=== PATIENT | female | born 1990 | race Caucasian/White ===

== ENCOUNTER 2018-09-19 11:54 | Emergency (ER) | payer OTHER ==
[2018-09-19 12:56] VITALS: BP 111/66
--- NOTE | 2018-09-19 13:37 | UC ---
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 she is currently having an outbreak in the [place] area. - History of Current Complaint Chief Complaint: UCSkin Time Seen by Provider: 09/19/18 13:01 Stated Complaint: PERSONAL Hx Obtained From: Patient Hx Last Menstrual Period: 09/10/18 ?: No Onset/Duration: Sudden Onset Skin Exposure Onset/Duration: Days Ago Timing: Constant Onset Severity: Mild Current Severity: None Pain Intensity: 0 Location: Other - [place] area Character: Redness, Painful Aggravating Factor(s): Touch Alleviating Factor(s): Nothing - Allergy/Home Medications Allergies/Adverse Reactions: Allergies Allergy/AdvReac Type Severity Reaction Status Date / Time No Known Allergies Allergy Verified 09/19/18 12:51 PMH/Surg Hx/FS Hx/Imm Hx Previously Healthy: Yes - Surgical History Surgical History: Yes Surgery Procedure, Year, and Place: TONSILLECTOMY 2002 - Family History Known Family History: Positive: Hypertension - Social History Alcohol Use: Occasionally Substance Use Type: None Smoking Status (MU): Never Smoked Tobacco Have You Smoked in the Last Year: No - Immunization History Most Recent Influenza Vaccination: 2011 Most Recent Tetanus Shot: 2000 Most Recent Pneumonia Vaccination: never Review of Systems All Other Systems Reviewed And Are Negative: Yes Constitutional: Positive: Negative Skin: Positive: Rash Eyes: Positive: Negative ENT: Positive: Negative Respiratory: Positive: Negative Cardiovascular: Positive: Negative Gastrointestinal: Positive: Negative Genitourinary: Positive: Negative Motor: Positive: Negative Neurovascular: Positive: Negative Musculoskeletal: Positive: Negative Neurological: Positive: Negative Psychological: Positive: Negative Is Patient Immunocompromised?: No Physical Exam Triage Information Reviewed: Yes Appearance: Well-Appearing, Well-Nourished, Pain Distress Vital Signs: Initial Vital Signs Temp 98.1 F 09/19/18 12:52 Pulse 72 09/19/18 12:52 Resp 15 09/19/18 12:52 BP 111/66 09/19/18 12:52 Pulse Ox 100 09/19/18 12:52 Vital Signs Reviewed: Yes Eye Exam: Normal ENT Exam: Normal Dental Exam: Normal Neck exam: Normal Respiratory Exam: Normal Cardiovascular Exam: Normal Abdominal Exam: Normal Musculoskeletal Exam: Normal Neurological Exam: Normal Psychological Exam: Normal Skin: Positive: Rashes - vesicular lesions in the [place] area Course/Dx - Course Course Of Treatment: hx obtained, exam performed ,meds reviewed, treated for herpes outbreak - Differential Diagnoses - Skin Complaint Differential Diagnoses: Cellulitis, Contact Dermatitis, Urticaria, Varicella Zoster - Diagnoses Provider Diagnosis: HSV (herpes simplex virus) infection Discharge - Sign-Out/Discharge Documenting (check all that apply): Patient Departure All imaging exams completed and their final reports reviewed: No Studies - Discharge Plan Condition: Stable Disposition: HOME Prescriptions: ValACYclovir (*) [Valtrex 1 GM(*)] 1 gm PO BID #14 tab Patient Education Materials: Genital Herpes Simplex (ED) Referrals: Harley Mejia [Primary Care Provider] - Additional Instructions: 1. take the medication as prescribed. 2. FOllow up with your gladys PCP as needed. - Billing Disposition and Condition Condition: STABLE Disposition: Home - Attestation Statements Provider Attestation: Per institutional requirements, I have reviewed the chart, however, I was not consulted specifically or made aware of this patient by the midlevel provider. I did not personally evaluate, interact with , or disposition this patient.
== END 2018-09-19 13:52 | disposition home or self-care (01) ==
LOC: UCCORT 11:54
DX: B00.9 Herpesviral infection, unspecified (principal)
CPT/HCPCS: 99202; G0463

== ENCOUNTER 2018-10-13 13:44 | Emergency (ER) | payer OTHER ==
[2018-10-13 14:26] VITALS: BP 119/75
--- NOTE | 2018-10-13 14:59 | UC ---
UC General HPI - HPI Summary HPI Summary: PT STATES HX HSV. HAD AN OUTBREAK LAST MONTH AND TX. HERE FOR ITCHING AND IRRITATION INSIDE L LABIA SINCE YESTERDAY. THINKS IT IS ANOTHER OUTBREAK. SHE ALSO NOTES SOME BLOOD ON TOILET TISSUE BUT IS DUE FOR HER PERIOD. NO FEVER OR ABDOMINAL PAIN. PT HAS AN APPOINTMENT WITH DR BARRERA AT THE END OF OCTOBER WHICH IS THE 1ST AVAILABLE FOR A NEW PT. - History of Current Complaint Chief Complaint: UCGU Stated Complaint: PERSONAL Time Seen by Provider: 10/13/18 14:49 Hx Obtained From: Patient Hx Last Menstrual Period: 09/06/18 Onset/Duration: Gradual Onset Timing: Constant Pain Intensity: 2 Associated Signs & Symptoms: Negative: Abdominal Pain, Dysuria, Fever - Allergy/Home Medications Allergies/Adverse Reactions: Allergies Allergy/AdvReac Type Severity Reaction Status Date / Time No Known Allergies Allergy Verified 10/13/18 14:26 Home Medications: Home Medications Aspirin/Acetaminophen/Caffeine [Excedrin Extra Strength Caplet] 1 each PO ONCE PRN 10/13/18 [History Confirmed 10/13/18] PMH/Surg Hx/FS Hx/Imm Hx - Additional Past Medical History Additional PMH: HSV TYPE II - Surgical History Surgical History: Yes Surgery Procedure, Year, and Place: TONSILLECTOMY 2002 - Family History Known Family History: Positive: Hypertension - Social History Alcohol Use: Weekly Substance Use Type: None Smoking Status (MU): Never Smoked Tobacco Have You Smoked in the Last Year: No - Immunization History Most Recent Influenza Vaccination: 2011 Most Recent Tetanus Shot: 2000 Most Recent Pneumonia Vaccination: never Review of Systems All Other Systems Reviewed And Are Negative: Yes Genitourinary: Positive: Vaginal/Penile Burning, Vaginal/Penile Itching, Ulceration/Lesion Physical Exam Triage Information Reviewed: Yes Vital Signs: Initial Vital Signs Temp 97.4 F 10/13/18 14:19 Pulse 75 10/13/18 14:19 Resp 15 10/13/18 14:19 BP 119/75 10/13/18 14:19 Pulse Ox 100 10/13/18 14:19 Vital Signs Reviewed: Yes Eyes: Positive: Conjunctiva Clear Respiratory: Positive: Lungs clear Cardiovascular: Positive: RRR Abdomen Description: Positive: Nontender Bowel Sounds: Positive: Present Pelvic Exam: Positive: Other - EXTERNAL INSPECTION C/W HERPETIC LESIONS ON L INNER LABIA. SOME BLOOD AT VAGINAL OPENING(PERIOD DUE NOW). Musculoskeletal: Positive: ROM Intact Neurological: Positive: Alert Psychological: Positive: Age Appropriate Behavior Skin Exam: Normal Course/Dx - Diagnoses Provider Diagnosis: Genital herpes Discharge - Sign-Out/Discharge Documenting (check all that apply): Patient Departure All imaging exams completed and their final reports reviewed: No Studies - Discharge Plan Condition: Stable Disposition: HOME Prescriptions: ValACYclovir (*) [Valtrex 1 GM(*)] 1 gm PO BID 7 Days #14 tab Patient Education Materials: Genital Herpes Simplex (ED) Referrals: Rod Barrera MD [Medical Doctor] - Additional Instructions: FOLLOW UP SCHEDULED THE LAST WEEK IN OCTOBER WITH DR BARRERA - Billing Disposition and Condition Condition: STABLE Disposition: Home
== END 2018-10-13 15:13 | disposition home or self-care (01) ==
LOC: UCCORT 13:44
DX: A60.1 Herpesviral infection of perianal skin and rectum (principal); Z79.82 Long term (current) use of aspirin
CPT/HCPCS: 99212; G0463